=== PATIENT | male | born 2000 | race Caucasian/White ===

== ENCOUNTER → 2022-01-26 13:11 | Outpatient (CLI) | payer BC, SELFPAY ==
--- NOTE | ~2022-01-26 | CT_ITS ---
EXAMINATION: CT brain wo con EXAM DATE: 01/26/2022 13:33 INDICATION: Concussion without loss of consciousness. Posterior head trauma 2 weeks ago. Headaches an d sharp pains left eye. TECHNIQUE: Spiral CT of the head was performed without contrast. Axial, coronal and sagittal images were reviewed. The dose-length product (DLP) for this examination was 599.57 mGy-cm. The exposure w as tailored according to patient size, and iterative reconstruction (ASIR) was used as additional dos e reduction technique. There is no prior study for comparison. FINDINGS: There is no acute intraparenchymal hemorrhage. No evidence of intraparenchymal brain mass lesion. No evidence of acute infarction. There is no mass effect or midline shift. The ventricles are normal in size. There are no extra-axial collections. There are no acute calvarial fractures. T he orbits are unremarkable. Soft tissue is unremarkable. The visualized sinuses and mastoid air honorio ls are well aerated. IMPRESSION: Normal head CT examination. Reviewed, dictated and finalized at location B. R TECHNICIAN IMPRESSION: Normal head CT examination.
== END ==
PROVIDERS: PCP Internal Medicine; Visit Provider Nurse Practitioner Family
DX: S06.0X0A Concussion without loss of consciousness, initial encounter (principal); X58.XXXA Exposure to other specified factors, initial encounter
CPT/HCPCS: 70450